=== PATIENT | male | born 1975 | race Caucasian/White ===

== ENCOUNTER 2019-05-22 14:13 | Emergency (ER) | payer OTHER, MEDICAID ==
[~2019-05-22] VITALS: Ht 170.2 cm; Wt 113.4 kg
[2019-05-22] MEDS ORDERED: NABUMETONE 750750 M1 PO (15:40)
[2019-05-22 15:50] VITALS: BP 113/68
== END 2019-05-22 15:53 | disposition home or self-care (01) ==
LOC: M.ERS 14:13
DX: S20.212A Contusion of left front wall of thorax, initial encounter (principal); W01.198A Fall on same level from slipping, tripping and stumbling with subsequent striking against other object, initial encounter; Y92.89 Other specified places as the place of occurrence of the external cause; Y93.89 Activity, other specified; Y99.8 Other external cause status

== ENCOUNTER 2021-10-26 09:03 | Emergency (ER) | payer OTHER, MEDICAID ==
[~2021-10-26] VITALS: Ht 180.3 cm; Wt 113.4 kg
[~2021-10-26 09:03] MED LIST: NABUMETONE 750750 M1 PO
[2021-10-26 09:23] VITALS: BP 112/77
[2021-10-26 10:36] LABS: INFLUENZA A ANTIGEN Negative (Negative); INFLUENZA B ANTIGEN Negative (Negative)
--- NOTE | 2021-10-27 09:22 | EKG ---
[place] [address] ELECTROCARDIOGRAM REPORT Name: HECTOR LAO EDЮЛИЯ [id number] Admission: 10/26/21 Attend Phys: Discharge: 10/26/21 Date of : 79 Date of Service: 10/26/21929 Report #: [id number] THIS REPORT FOR: //name// [facility] ED Test Date: 2021-10-26 Test Time: 09:30:09 Pat Name: HECTOR LAO Department: Room: Gender: Fabric Inspector: S : 1975 Requested By: Percy Mejia Order Number: [id number] MD: Kaleb Randall Measurements Intervals [place] Rate: 81 P: 64 [place]: 174 QRS: 19 QRSD: 94 T: 55 QT: 349 QTc: 405 Interpretive Statements Sinus rhythm Consider left atrial enlargement No previous ECG available for comparison Electronically Signed On 10-27-2021 9:22:32 [employer] by Kaleb Randall [email or web address] <ELECTRONICALLY SIGNED> By: Kaleb Randall MD, [facility] 10/27/21921 9 9 Kaleb Randall MD, FAC /EPI
== END 2021-10-26 10:37 | disposition left against medical advice (07) ==
LOC: M.ERS 09:03
PROVIDERS: Emergency Medicine
DX: U07.1 COVID-19 (principal); R51.9 Headache, unspecified; R55 Syncope and collapse